=== PATIENT | male | born 1955 | race Caucasian/White ===

== ENCOUNTER 2023-07-14 10:23 | Day surgery (SDC) | payer MEDICARE ==
[2023-07-08 14:50] LABS: BILIRUBIN,URINE NEGATIVE (Neg); CLARITY,URINE CLEAR (Clear); COLOR,URINE YELLOW (Yellow); GLUCOSE, URINE NEGATIVE (Neg); KETONES,URINE NEGATIVE (Neg); LEUKOCYTE ESTERASE ,URINE NEGATIVE (Neg); NITRITES, URINE NEGATIVE (Neg); OCCULT BLOOD,URINE TRACE-INTACT (Neg); PH,URINE 5.5 (4.8-8.0); PROTEIN,URINE NEGATIVE (Neg); UROBILINOGEN,URINE 0.2 E.U/dL (0.2-1.0)
[2023-07-08 14:51] LABS: BASOPHILS % (AUTO) 0.4 % (0-1); EOSINOPHILS # (AUTO) 0.2 X10'3 (0-0.9); EOSINOPHILS % (AUTO) 2.8 % (0-6); LYMPHOCYTES # (AUTO) 2.3 X10'3 (1.1-4.8); LYMPHOCYTES % (AUTO) 28.5 % (21-51); MEAN CORPUSCULAR HEMOGLOBIN 31.3 PG (27.0-31.0); MEAN CORPUSCULAR HGB CONC 33.9 g/dL (33.0-36.5); MEAN CORPUSCULAR VOLUME 92.2 FL (78-98); MEAN PLATELET VOLUME 8.1 FL (7.4-10.4); MONOCYTES # (AUTO) 0.5 X10'3 (0-0.9); MONOCYTES % (AUTO) 6.9 % (2-12); NEUTROPHILS # (AUTO) 4.8 X10'3 (1.8-7.7); NEUTROPHILS % (AUTO) 61.4 % (42-75); PRE OP HEMATOCRIT 42.5 % (42.0-52.0); PRE OP HEMOGLOBIN 14.4 g/dL (14.0-17.9); PRE OP PLATELET COUNT 209 X10'3 (140-440); PRE OP WHITE BLOOD COUNT 7.9 10'3 (4.8-10.8); RED BLOOD COUNT 4.61 X10'6 (4.70-6.10); RED CELL DISTRIBUTION WIDTH 13.9 % (11.5-14.5)
[2023-07-08 14:51] LABS: UA COLLECTION TYPE CLN CATCH MIDSTREAM
[2023-07-08 15:11] LABS: ALBUMIN 3.7 G/DL (3.4-5.0); ALKALINE PHOSPHATASE 76 IU/L (46-116); BLOOD UREA NITROGEN 14 MG/DL (7-18); BUN/CREATININE RATIO 15.2 (10.0-20.0); CHLORIDE 105 MMOL/L (99-107); CREATININE 0.92 MG/DL (0.60-1.10); PRE OP ALT 74 U/L (30-65); PRE OP ANION GAP 5 (8-16); PRE OP AST 30 U/L (10-37); PRE OP BILIRUB, TOTAL 0.5 MG/DL (0.0-1.0); PRE OP GLUCOSE 119 MG/DL (70-104); PRE OP POTASSIUM 4.1 MMOL/L (3.4-5.1); PRE OP SODIUM 142 MMOL/L (135-145); TOTAL CARBON DIOXIDE 31.9 MMOL/L (24-32); TOTAL PROTEIN 7.5 G/DL (6.4-8.2); eGFR 83 ML/MIN
[2023-07-08 15:15] LABS: MUCUS STRANDS MANY /LPF (Neg)
[2023-07-08 15:17] LABS: RBC,URINE 0-2 /HPF (0-2); WBC,URINE 0-4 /HPF (0-4)
[2023-07-08 15:19] LABS: SQUAMOUS EPITHELIAL CELL,UR FEW /LPF (FEW)
[2023-07-08 15:24] LABS: BACTERIA,URINE FEW /HPF (Neg)
[~2023-07-14] VITALS: Ht 180.3 cm; Wt 115.4 kg
[2023-07-14] VITALS (18 sets, daily range): BP systolic 122–178; BP diastolic 77–114; PULSE 52–65; RESP 10–20; TEMP 98.8; O2SAT 91–99
[~2023-07-14 10:23] MED LIST: AMLO5TAB16; FISH OIL; MULTIVITAMIN; NATTOKINASE; TESTOSTERONE SUPPORT; VIT B; VIT C; VIT D; VIT K2; [UNRECOGNIZED DRUG - OTHER]; cefazolin 2gm/D5W 100mL 100 ML IV ONE; famotidine 20mg tablet PO ONE; ringers solution, lacted 1,000 ML IV SCH
[2023-07-14] MEDS ORDERED: bacitracin 15gm ointment TP ONE (13:08)
[2023-07-14] MEDS ORDERED: BUPIVAcaine 2.5mg/ml inj 50ml vial (contains preservative) ONE (13:08)
[2023-07-14] MEDS ORDERED: sevoflurane 250ml liquid IH ONE (14:04)
[2023-07-14] MEDS ORDERED: neostigmine methylsulfate 1 MG/ML 10ml vial ONE (14:04)
[2023-07-14] MEDS ORDERED: glycopyrrolate 0.2mg/ml inj ONE (14:04)
[2023-07-14] MEDS ORDERED: fentaNYL /PF 50mcg/ml 5ml ampule ONE (14:06)
[2023-07-14] MEDS ORDERED: midazolam 1 mg/ML 2ml injection ONE (14:06)
[2023-07-14] MEDS ORDERED: LIDOcaine 2% (20mg/ml) 5ml vial ONE (14:17)
[2023-07-14] MEDS ORDERED: dexamethasone sod phosphate 4mg/ml inj. ONE (14:17)
[2023-07-14] MEDS ORDERED: rocuronium 10mg/ml inj IV ONE (14:17)
[2023-07-14] MEDS ORDERED: propofol inj 20 ML IV ONE (14:17)
[2023-07-14] MEDS ORDERED: ondansetron/PF 4mg/2ml inj ONE (14:18)
[2023-07-14] MEDS ORDERED: labetalol 20mg/4ml (5mg/ml) syringe IV ONE (14:39)
[2023-07-14] MEDS ORDERED: BUPIVAcaine/PF 2.5mg/ml (0.25%) 10ml vial ONE (14:49)
[2023-07-14] MEDS ORDERED: BUPIVACAINE liposomal/PF 13.3 MG/ML vial IM ONE (14:49)
[2023-07-14] MEDS ORDERED: meperidine/PF 25mg/ml syringe IV PRN ×3 (15:30)
[2023-07-14] MEDS ORDERED: ondansetron/PF 4mg/2ml inj IV PRN (15:30)
[2023-07-14] MEDS ORDERED: enalaprilat dihydrate 2.5mg/2ml vial IV PRN (15:30)
[2023-07-14] MEDS ORDERED: morphine 4 MG/ML inj SYRINge IV PRN (15:30)
[2023-07-14] MEDS ORDERED: morphine 2 MG/ML inj. syringe IV PRN (15:30)
[2023-07-14] MEDS ORDERED: ringers solution, lacted 1,000 ML IV SCH (15:30)
[2023-07-14] MEDS ORDERED: acetaminophen 1,000mg/100ml IV 100 ML IV ONE (15:30)
[2023-07-14] MEDS ORDERED: ketorolac trometh. 30mg/ml inj. IV ONE (15:30)
[2023-07-14] MEDS ORDERED: hydrALAZINE 20mg/ml inj. IV PRN (15:30)
[2023-07-14] MEDS ORDERED: proCHLORperazine 10 MG/2 ml inj IV PRN (15:30)
[2023-07-14] MEDS ORDERED: HYDROcodone/acetaminophen 5mg/325mg tablet PO ONE (16:45)
== END 2023-07-14 18:27 | disposition home or self-care (01) ==
LOC: PAS 10:23
PROVIDERS: ATTEND Surgery
DX: K42.0 Umbilical hernia with obstruction, without gangrene (principal); M62.08 Separation of muscle (nontraumatic), other site; E66.9 Obesity, unspecified; Z68.35 Body mass index [BMI] 35.0-35.9, adult; I10 Essential (primary) hypertension; Z98.890 Other specified postprocedural states; Z91.011 Allergy to milk products; Z79.899 Other long term (current) drug therapy; Z80.9 Family history of malignant neoplasm, unspecified
CPT/HCPCS: 36415; 49592; 64488; 80053; 81001; 82948; 85025; C1781; C9290; J0131; J0360; J0690; J1100; J1885; J2175; J2250; J2270; J2405; J2704; J2710; J3010; J3490; J7030; J7120; Z7506; Z7508; Z7512; A4215; A4618; A7000